=== PATIENT | female | born 1975 | race Caucasian/White ===

== ENCOUNTER → 2020-08-23 | Day surgery (SDC) | payer OTHER ==
[~2020-08-23] VITALS: Ht 165.1 cm; Wt 105.2 kg
[~2020-08-23] MED LIST: ACETAMINOPHEN500 M1 PO; COLACE100 MG PO; GABAPENTIN600 MG PO; MOTRIN600 MG PO; OXY-IR 5MG5 MG PO; PHENERGAN12.5 M1 PO; SINGULAIR10 MG PO; SYNTHROID125 MCG PO; VENTOLIN (2.5 MG/3 M INH; VENTOLIN HFA IN18 GM INH; VITAMIN B-121000 MC1 PO; ZYRTEC10 M3 PO
[2020-08-23 09:43] LABS: HCG (URINE) SCREEN NEGATIVE (NEGATIVE)
== END | disposition home or self-care (01) ==
LOC: FAS 09:05
PROVIDERS: Anesthesiology
DX: K43.6 Other and unspecified ventral hernia with obstruction, without gangrene (principal); K66.0 Peritoneal adhesions (postprocedural) (postinfection); E03.9 Hypothyroidism, unspecified; F31.9 Bipolar disorder, unspecified; G47.30 Sleep apnea, unspecified; J43.9 Emphysema, unspecified; E66.01 Morbid (severe) obesity due to excess calories; Z68.41 Body mass index [BMI] 40.0-44.9, adult; Z87.891 Personal history of nicotine dependence
CPT/HCPCS: 84703; 93005; C1781; J0690; J1100; J1170; J1644; J2250; J2405; J2550; J2704; J2710; J3010; J7120